=== PATIENT | female | born 1985 | race Hispanic/Latino ===

== ENCOUNTER 2019-09-04 11:37 | Emergency (ER) | payer OTHER | END 2019-09-04 12:15 | disposition home or self-care (01) | LOC: EDH 11:37 | DX: B37.3 Candidiasis of vulva and vagina (principal); E11.9 Type 2 diabetes mellitus without complications; G43.909 Migraine, unspecified, not intractable, without status migrainosus; Z72.0 Tobacco use | CPT/HCPCS: 99281 ==

== ENCOUNTER 2024-09-02 12:11 | Emergency (ER) | payer SELFPAY ==
[~2024-09-02] VITALS: Ht 157.5 cm; Wt 56.7 kg
[2024-09-02 13:21] LABS: BASOPHILS # (AUTO) 0.02 K/uL (0.00-0.20); BASOPHILS % (AUTO) 0.2 % (0.0-5.0); IMMATURE GRANULOCYTE ABSOLUTE 0.03 K/uL (0-1); LYMPHOCYTES # (AUTO) 0.6 K/uL (1.0-4.8); LYMPHOCYTES % (AUTO) 7.5 % (21.0-51.0); MEAN CORPUSCULAR HEMOGLOBIN 30.4 pg (27.0-33.0); MEAN CORPUSCULAR HGB CONC 34.9 g/dL (32.0-36.0); MEAN CORPUSCULAR VOLUME 87.2 fL (79-99); MONOCYTES # (AUTO) 0.4 K/uL (0.1-1.0); MONOCYTES % (AUTO) 4.3 % (3.0-13.0); NEUTROPHILS # (AUTO) 7.1 K/uL (1.8-7.7); NEUTROPHILS % (AUTO) 87.6 % (40.0-77.0); PLATELET COUNT (AUTO) 211 K/uL (130-400); RED BLOOD CELL COUNT(AUTO) 5.39 MIL/uL (4.00-5.50); RED CELL DISTRIBUTION WIDTH 12.4 % (11.0-15.5); WHITE BLOOD COUNT (AUTO) 8.1 K/uL (4.8-10.8)
[2024-09-02] MEDS: ondanSETRON 4MG INJ IVP STA (13:21)
[2024-09-02] MEDS: LACTATED RINGERS 1000ML 1,000 ML IV STA (13:21)
[2024-09-02] MEDS: FAMOTIDINE 20MG VIAL IV STA (13:21)
[2024-09-02] MEDS: morPHINE 2 MG SYG IVP STA (13:21)
[2024-09-02 13:33] LABS: ALBUMIN 3.2 g/dL (3.5-5.0); BILIRUBIN,TOTAL 0.3 mg/dL (0.2-1.0); CREATININE 0.7 mg/dL (0.5-1.0); TOTAL PROTEIN, SERUM 7.4 g/dL (6.0-8.3)
[2024-09-02 13:59] LABS: APPEARANCE,URINE CLOUDY (CLEAR); BILIRUBIN,URINE NEGATIVE (NEGATIVE); COLOR,URINE YELLOW (YELLOW); GLUCOSE, URINE (UA) >=1000 mg/dL (NEGATIVE); KETONES,URINE 150 mg/dL (NEGATIVE); LEUKOCYTE ESTERASE ,URINE NEGATIVE Leu/uL (NEGATIVE); NITRATE,URINE 2+ (NEGATIVE); OCCULT BLOOD,URINE SMALL (NEGATIVE); PROTEIN,URINE 50 mg/dL (NEGATIVE); UROBILINOGEN,URINE 3 mg/dL (0.2-1.0)
[2024-09-02 14:00] LABS: ADD UA MICROSCOPIC YES
[2024-09-02] MEDS: PoTASSium BIcarbonate/CIT AC 25 MEQ TABLET.EFF PO STA (14:00)
[2024-09-02 14:14] LABS: BACTERIA,URINE MOD /HPF (None Seen); MUCUS,URINE RARE LPF (None Seen); SQUAMOUS EPITHELIAL CELL,UR MOD /HPF (0-2)
[2024-09-02] MEDS: ketOROlac 15MG/ML VIAL (15MG/ML) IV STA (14:30)
[2024-09-02] MEDS: cefTRIAXone 1G VIAL IVPB STA (14:47)
[2024-09-02] MEDS ORDERED: FAMO-136 PO (14:59)
[2024-09-02] MEDS ORDERED: ONDA-243 PO (14:59)
[2024-09-02] MEDS ORDERED: CEPH500B PO (14:59)
--- NOTE | 2024-09-02 15:00 | ERN ---
ED Note History of Present Illness Stated Complaint: NVD Chief Complaint: Nausea,Vomiting,Diarrhea Time Seen by MD: 12:22 Time Seen by Midlevel: 12:28 Dictation: 39-YEAR-OLD FEMALE WITH A HISTORY OF HYPERTENSION DIABETES COMING IN COMPLAINING OF VOMITING A RIGHT UPPER QUADRANT PAIN SINCE MONDAY. PATIENT STATES TODAY SHE HAS THROWN UP ABOUT 3 TIMES, NO BLOOD. PATIENT HAS A SURGICAL HISTORY OF C- SECTION, UTERUS RECONSTRUCTION, TONSILLECTOMY, AND CHOLECYSTECTOMY. Allergies: Coded Allergies: No Known Drug Allergies (Unverified Allergy, Unknown, 09/02/24) Home Meds Active Scripts Cephalexin Monohydrate (Keflex) 500 Mg Cap, 500 MG PO BID for 7 Days, #28 CAP Prov:RODRIGUEZVENESSAGURWINDER M[employer]ED [employer] FARM WORKER 09/02/24 Famotidine (Pepcid) 20 Mg Tablet, 1 TAB PO BID for 30 Days, #60 TAB 0 Refills Prov:RODRIGUEZVENESSAGURWINDER MIXED [employer] FARM WORKER 09/02/24 Ondansetron (Ondansetron Odt) 4 Mg Tab.rapdis, 4 MG PO Q6HPRN PRN for nausea for 3 Days, #12 TAB 0 Refills Prov:RODRIGUEZGURWINDER MIXED [employer] FARM WORKER 09/02/24 Past Medical History Past Medical History: Anxiety, Diabetes-Type II, Hypertension Surgical History: Hysterectomy, Tonsillectomy, Cholecystectomy : 2 Para: 1 Aborts: 1 Review of System Dictation CONSTITUTIONAL: NEGATIVE FOR FEVER,CHILLS, AND WEIGHT LOSS EYES: NEGATIVE FOR INJURY, PAIN,REDNESS, AND DISCHARGE ENT: NEGATIVE FOR INJURY,PAIN OR SWELLING CARDIOVASCULAR: NEGATIVE FOR CHEST PAIN, PALPITATIONS, AND EDEMA RESPIRATORY: NEGATIVE FOR SHORTNESS OF BREATH, COUGH, AND WHEEZING, ABDOMEN/GI: COMPLAINING OF EPIGASTRIC PAIN, RIGHT UPPER QUADRANT PAIN, NAUSEA, VOMITING, NO DIARRHEA, AND CONSTIPATION BACK: NEGATIVE FOR INJURY AND PAIN : NEGATIVE FOR INJURY, BLEEDING AND DISCHARGE MS/EXTREMITY: NEGATIVE FOR INJURY AND DEFORMITY SKIN: NEGATIVE FOR RASH, AND DISCOLORATION NEURO: NEGATIVE FOR HEADACHE, WEAKNESS, NUMBNESS, TINGLING, AND SEIZURE PSYCH: NEGATIVE FOR SUICIDE IDEATION, HOMICIDAL IDEATION, AND HALLUCINATIONS Review of Systems: was completed Initial Vital Sign VS Vital Signs Date Time Temp Pulse Resp B/P (MAP) Pulse Ox O2 Delivery O2 Flow Rate FiO2 09/02/24 12:12 Room Air 0 09/02/24 12:20 98.8 90 16 128/68 98 21 Physical Exam Dictation GENERAL: AWAKE, ALERT, NAD HEAD/FACE: NORMOCEPHALIC, ATRAUMATIC EYES: PERRL, EOMI, VISION AT BASELINE ENT: ORAL CAVITY CLEAR, TMS CLEAR, NO SIGNS OF INFECTION NECK: TRACHEA MIDLINE, SUPPLE, NO NUCHAL RIGIDITY CARDIOVASCULAR: RRR, NORMAL S1/S2, NO MRGS, NO JVD RESPIRATORY: CTAB, NO RESPIRATORY DISTRESS, NO RALES OR WHEEZES ABDOMEN: SOFT, NON-TENDER, NON-DISTENDED, NORMAL BOWEL SOUNDS, NO GUARDING OR REBOUND. SKIN: WARM, DRY, NORMAL TURGOR, NO RASH MS/EXTREMITY: PULSES EQUAL, NO CYANOSIS, NEUROVASCULAR INTACT, FROM NEURO: COAX4, GCS 15, STRENGTH 5/5, CN 2-12 INTACT, NORMAL CEREBELLAR EXAM, NORM AL GAIT, PSYCH: NORMAL BEHAVIOR, MOOD, AND AFFECT NORMAL Results (Laboratory/Radiology) Laboratory/Radiology Laboratory Tests Test 09/02/24 12:45 White Blood Count 8.1 K/uL (4.8-10.8) Red Blood Count 5.39 MIL/uL (4.00-5.50) Hemoglobin 16.4 g/dL (12.0-16.0) H Hematocrit 47.0 % (36-48) Mean Corpuscular Volume 87.2 fL (79-99) Mean Corpuscular Hemoglobin 30.4 pg (27.0-33.0) Mean Corpuscular Hemoglobin Concent 34.9 g/dL (32.0-36.0) Red Cell Distribution Width 12.4 % (11.0-15.5) Platelet Count 211 K/uL (130-400) Mean Platelet Volume 11.7 fL (7.5-10.5) H Immature Granulocyte % (Auto) 0.4 % (0-1) Neutrophils (%) (Auto) 87.6 % (40.0-77.0) H Lymphocytes (%) (Auto) 7.5 % (21.0-51.0) L Monocytes (%) (Auto) 4.3 % (3.0-13.0) Eosinophils (%) (Auto) 0.0 % (0.0-8.0) Basophils (%) (Auto) 0.2 % (0.0-5.0) Neutrophils # (Auto) 7.1 K/uL (1.8-7.7) Lymphocytes # (Auto) 0.6 K/uL (1.0-4.8) L Monocytes # (Auto) 0.4 K/uL (0.1-1.0) Eosinophils # (Auto) 0.00 K/uL (0.00-0.70) Basophils # (Auto) 0.02 K/uL (0.00-0.20) Absolute Immature Granulocyte (auto 0.03 K/uL (0-1) Nucleated Red Blood Cells 0.0 % (0.0-0.19) White Cell Morphology Comment See comments Urine Color YELLOW (YELLOW) Urine Appearance CLOUDY (CLEAR) H Urine pH 6.0 (5.0-8.0) Urine Specific [place] 1.026 (1.001-1.031) Urine Protein 50 mg/dL (NEGATIVE) H Urine Glucose (UA) >=1000 mg/dL (NEGATIVE) H Urine Ketones 150 mg/dL (NEGATIVE) H Urine Occult Blood SMALL (NEGATIVE) H Urine Nitrate 2+ (NEGATIVE) H Urine Bilirubin NEGATIVE mg/dL (NEGATIVE) Urine Urobilinogen 3 mg/dL (0.2-1.0) H Urine Leukocyte Esterase NEGATIVE Lana/uL Urine RBC 6-10 /HPF (0-1) H Urine WBC 6-10 /HPF (0-1) H Urine Squamous Epithelial Cells MOD /HPF (0-2) Urine Bacteria MOD /HPF (None Seen) Sodium Level 137 mmol/L (136-145) Potassium Level 3.0 mmol/L (3.5-5.1) *L Chloride Level 98 mmol/L (101-111) L Carbon Dioxide Level 29 mmol/L (21-32) Blood Urea Nitrogen 5 mg/dL (7-18) L Creatinine 0.7 mg/dL (0.5-1.0) Glomerular Filtration Rate Calc 112 mL/min (>90) Random Glucose 249 mg/dL (70-105) H Total Calcium 8.9 mg/dL (8.5-10.1) Total Bilirubin 0.3 mg/dL (0.2-1.0) Aspartate Amino Transf (AST/SGOT) 27 U/L (10-37) Alanine Aminotransferase (ALT/SGPT) 47 U/L (12-78) Alkaline Phosphatase 104 U/L (50-136) Total Protein 7.4 g/dL (6.0-8.3) Albumin 3.2 g/dL (3.5-5.0) L Lipase 32 U/L (16-77) Human Chorionic Gonadotropin, Quant 0 mIU/mL (0-5) Labs Reviewed?: Yes CT Scan Comment: IMAGING REPORT Signed PATIENT: DAVIDE JACOB MR#: [id number] : 1985 SEX: F AGE: 39 LOCATION: [facility] ORDER 13 STATUS: REG ER REPORT#: [id number] SERVICE 11 REASON: ABDOMINAL PAIN , RUQ,R FLANK ORDERING PHYSICIAN: GURWINDER RODRIGUEZ NP PROCEDURE: ABD PEL W - CT ABDOMEN/PELVIS W/CONTRAST CT ABDOMEN/PELVIS W/CONTRAST HISTORY: Abdominal pain COMPARISON: None TECHNIQUE: Multiple sequential axial images of the abdomen and pelvis were obtained from the dome of the diaphragm through symphysis pubis. Patient was given 75 cc of Omnipaque through intravenous route. Oral contrast was not given. FINDINGS: No pleural effusion is seen bilaterally. There is no evidence of parenchymal disease or pulmonary nodule of the visualized lower lungs. Degenerative changes of the thoracolumbar spine are present. The heart is not enlarged. Liver is enlarged measuring 21 cm. Gallbladder is contracted. There is fluid-filled colon may be related to enterocolitis. The liver, spleen, adrenal glands and pancreas are unremarkable. There is no evidence of hydronephrosis bilaterally. No evidence of renal stone is seen. Fecal material is seen in the colon. There are normal size retroperitoneal and mesenteric lymph nodes. No ascites is seen. No CT evidence of acute appendicitis is seen. Clinical correlation is recommended. Pelvic sidewalls are symmetric bilaterally. Bladder is well distended without wall thickening. IMPRESSION: 1. Fluid-filled small bowel loops and colon may be related to enterocolitis. CT was performed with one or more following dose reduction techniques: automated exposure control, adjustment of the mA and kv according to patient's size, or use of a iterative reconstruction technique. DICTATED BY: LORNA SHORE MD DATE: 09/02/24 161 ELECTRONICALLY SIGNED BY: LORNA SHORE MD DATE: 09/02/24 1617 ED Course ED Course Orders Procedure Category Date Status Time Cbc With Differential LAB 09/02/24 Complete 12:57 Comprehensive LAB 09/02/24 Complete Metabolic Panel 12:57 Urinalysis Profile LAB 09/02/24 Complete 12:57 Hcg,Quantitative LAB 09/02/24 Complete 12:57 Ondansetron 4mg Inj PHA 09/02/24 Complete (Zofran 4mg Inj) 12:57 Famotidine 20mg Vial PHA 09/02/24 Complete (Pepcid 20mg Vial) 12:57 Morphine 2mg Syg PHA 09/02/24 Complete (Morphine 2mg Syg) 12:57 Lactated Ringers PHA 09/02/24 Complete 1000ml (Lactated 12:57 Potassium Bicarb/Cit PHA 09/02/24 Complete Ac 25meq (K-Lyte Ta 13:37 Culture Urine REYNA 09/02/24 In Process 14:00 Lipase LAB 09/02/24 Complete 14:01 Ketorolac PHA 09/02/24 Complete Tromethamine 15mg/Ml 14:22 Ceftriaxone 1g Vial PHA 09/02/24 Complete (Rocephine 1g Inj) 14:24 Ct Abdomen/Pelvis CT 09/02/24 Resulted W/Contrast 15:12 Iohexol (Omnipaque) PHA 09/02/24 Complete 15:51 Current Medications Medications (Trade) Dose Ordered Sig/Ella Route PRN Reason Start Time Stop Time Status Last Admin Dose Admin Ceftriaxone Sodium (ROCEphine 1G INJ) 1 gm ONCE STAT IVPB 09/02/24 14:24 09/02/24 14:26 DC 09/02/24 14:47 Famotidine (Pepcid 20mg Vial) 20 mg ONCE STAT IV 09/02/24 12:57 09/02/24 13:00 DC 09/02/24 13:21 Iohexol (Omnipaque) 75 ml STK-MED ONCE IV 09/02/24 15:51 09/02/24 15:51 DC Ketorolac Tromethamine (toRADol) 15 mg ONCE STAT IV 09/02/24 14:22 09/02/24 14:23 DC 09/02/24 14:30 Lactated Ringer's 1,000 ml @ 1,000 mls/hr Q1H STAT IV 09/02/24 12:57 09/02/24 13:56 DC 09/02/24 13:21 Morphine Sulfate (morPHINE 2MG SYG) 2 mg ONCE STAT IVP 09/02/24 12:57 09/02/24 13:00 DC 09/02/24 13:21 Ondansetron HCl (zoFRAN 4MG INJ) 4 mg ONCE STAT IVP 09/02/24 12:57 09/02/24 13:00 DC 09/02/24 13:21 Potassium Bicarbonate (K-Lyte Tablet Eff 25 Meq Tablet.eff) 50 meq ONCE STAT PO 09/02/24 13:37 09/02/24 13:39 DC 09/02/24 14:00 Vital Signs Date Time Temp Pulse Resp B/P (MAP) Pulse Ox O2 Delivery O2 Flow Rate FiO2 09/02/24 17:13 98.8 89 16 130/70 98 Room Air* 0 21 09/02/24 14:20 80 16 126/68 100 Room Air* 0 21 09/02/24 13:20 78 16 132/70 100 Room Air* 0 21 09/02/24 12:20 98.8 90 16 128/68 98 Room Air* 0 21 09/02/24 12:12 Room Air 0 Medical Decision Making MDM MDM: 39-YEAR-OLD FEMALE WITH A HISTORY OF HYPERTENSION DIABETES COMING IN COMPLAINING OF VOMITING A RIGHT UPPER QUADRANT PAIN SINCE MONDAY. PATIENT STATES TODAY SHE HAS THROWN UP ABOUT 3 TIMES, NO BLOOD. PATIENT HAS A SURGICAL HISTORY OF , UTERUS RECONSTRUCTION, TONSILLECTOMY, AND CHOLECYSTECTOMY.CBC SHOWS NO LEUKOCYTOSIS, NO ANEMIA, NO THROMBOCYTOPENIA. CH EMISTRY SHOWS HYPONATREMIA, REPLACED IN THE ER. NORMAL KIDNEY FUNCTION. HYPERGLYCEMIA AT 2:49 A.M.. NO TRANSAMINITIS. T BILI WITHIN NORMAL RANGE, LIPASE WITHIN NORMAL RANGE. UA SHOWS EVIDENCE OF MILD URINARY TRACT INFECTION, ROCEPHIN GIVEN IN THE ER. After pain medication patient currently states she still has pain, CT scan of the abdomen ordered. CT scan shows fluid filled small bowel loops and colon related to enterocolitis. PATIENT STATES FEELS BETTER AFTER PAIN MEDICATION AND FLUIDS. DISCUSSED FINDINGS WITH THE PATIENT. EDUCATED TO AVOID ANY SUGARY, FRIED OR SPICY FOODS. EDUCATED TO FOLLOW UP WITH PCP IN 1-2 DAYS OR TO RETURN TO THE ER IF SYMPTOMS WORSEN. PATIENT VERBALIZED UNDERSTANDING, ANSWERED ALL QUESTIONS. DIFFERENTIAL DIAGNOSIS: GASTROENTERITIS, URINARY TRACT INFECTION, PANCREATITIS, GASTRITIS RATIONALE: TESTS CONSIDERED AND ORDERED SECONDARY TO SHARED DECISION MAKING INCLUDE: PREVIOUS OUTSIDE RECORDS REVIEWED: OLD ER VISITS. RISK OF COMPLICATION AND/OR MORBIDITY OR MORTALITY OF PATIENT MANAGEMENT: NONE MEDICATIONS-PER MEDICATION RECONCILIATION NEED FOR HOSPITALIZATION: PATIENT DOES NOT MEET CRITERIA FOR HOSPITALIZATION. NEED FOR EMERGENCY MAJOR/MINOR SURGERY: NO THERE ARE NO SOCIAL CONCERNS WITH THIS PATIENT. PRESCRIPTION DRUG MANAGEMENT PRESCRIPTIONS WILL INCLUDE SYMPTOMATIC CARE PATIENT'S PRIOR EXTERNAL MEDICAL RECORDS FROM OTHER ER VISITS WERE REVIEWED BY ME INDICATED. PRIOR TESTING AND RESULTS FROM PREVIOUS VISITS WERE REVIEWED. PRIOR TESTS WERE TAKEN INTO ACCOUNT WITH MEDICAL DECISION MAKING AND RESOURCE UTILIZATION, INDEPENDENT HISTORIAN/HISTORIANS WERE USED TO OBTAIN COMPLETE MEDICAL HISTORY. I INDEPENDENTLY INTERPRETED THE TEST THAT WERE PERFORMED, RESULTS WERE REVIEWED BY ME AND CONSIDERED FINDINGS ON RADIOLOGY IF ORDERED. MEDICAL MANAGEMENT AND EXAMINATION INTERPRETATION DISCUSSIONS WERE HAD BY ME WITH OTHER QUALIFIED HEALTHCARE PROFESSIONALS INDICATED FOR THE PATIENT'S CARE. DX & DISP Disposition: Discharge Departure Impression: Primary Impression: Urinary tract infection Additional Impression: Gastroenteritis Condition: Stable Scripts Cephalexin Monohydrate (Keflex) 500 Mg Cap 500 MG PO BID for 7 Days, #28 CAP Prov: GURWINDER RODRIGUEZ [employer] WORKER 09/02/24 Famotidine (Pepcid) 20 Mg Tablet 1 TAB PO BID for 30 Days, #60 TAB 0 Refills Prov: GURWINDER RODRIGUEZ [employer] WORKER 09/02/24 Ondansetron (Ondansetron Odt) 4 Mg Tab.rapdis 4 MG PO Q6HPRN PRN for nausea for 3 Days, #12 TAB 0 Refills Prov: GURWINDER RODRIGUEZ [employer] WORKER 09/02/24 Additional Instructions: PLEASE TAKE MEDICATION PRESCRIBED. PLEASE TAKE YOUR DIABETIC MEDICATION PRESCRIBED. START A BLAND DIET AND INCREASE TOLERATED. AVOID ANY SUGARY, SPICY, FRIED FOODS. RETURN TO THE ER IF YOUR UNABLE TO KEEP ANY FOOD OR FLUIDS DOWN DESPITE TAKING YOUR NAUSEA MEDICATION. Referrals: SELF,REFERRAL (PCP) Time of Disposition: 14:59 I have reviewed the case, and I agree with, Diagnosis and Plan I performed this substantive portion of this visit. I have reviewed and personally made and approve the management plan that is documented in the note by myself or the RIGO. I acknowledge full responsibility for the patient's management plan. GURWINDER RODRIGUEZ NP Sep 02, 2024 15:00 LUMA WEBSTER MD Sep 02, 2024 18:47
[2024-09-02] MEDS ORDERED: IOHEXOL-350 75 ML VIAL IV ONE (15:51)
--- NOTE | 2024-09-02 16:17 | HMCIMG ---
CT ABDOMEN/PELVIS W/CONTRAST HISTORY: Abdominal pain COMPARISON: None TECHNIQUE: Multiple sequential axial images of the abdomen and pelvis were obtained from the dome of the diaphragm through symphysis pubis. Patient was given 75 cc of Omnipaque through intravenous route. Oral contrast was not given. FINDINGS: No pleural effusion is seen bilaterally. There is no evidence of parenchymal disease or pulmonary nodule of the visualized lower lungs. Degenerative changes of the thoracolumbar spine are present. The heart is not enlarged. Liver is enlarged measuring 21 cm. Gallbladder is contracted. There is fluid-filled colon may be related to enterocolitis. The liver, spleen, adrenal glands and pancreas are unremarkable. There is no evidence of hydronephrosis bilaterally. No evidence of renal stone is seen. Fecal material is seen in the colon. There are normal size retroperitoneal and mesenteric lymph nodes. No ascites is seen. No CT evidence of acute appendicitis is seen. Clinical correlation is recommended. Pelvic sidewalls are symmetric bilaterally. Bladder is well distended without wall thickening. IMPRESSION: 1. Fluid-filled small bowel loops and colon may be related to enterocolitis. CT was performed with one or more following dose reduction techniques: automated exposure control, adjustment of the mA and kv according to patient's size, or use of a iterative reconstruction technique.
[2024-09-02 17:13] VITALS: BP 130/70; PULSE 89; RESP 16; TEMP 98.7; O2SAT 98
== END 2024-09-02 17:30 | disposition home or self-care (01) ==
LOC: EDH 12:11
DX: N39.0 Urinary tract infection, site not specified (principal); K52.9 Noninfective gastroenteritis and colitis, unspecified; E11.9 Type 2 diabetes mellitus without complications; I10 Essential (primary) hypertension; R10.2 Pelvic and perineal pain; Z90.49 Acquired absence of other specified parts of digestive tract; Z90.710 Acquired absence of both cervix and uterus
CPT/HCPCS: 99285; 74177; 96374; 96375; 96361; 80053; 84702; 83690; 85025; 87086 ×2; 87186; 81001; 36415; J1885; J7120; J3490; J2270; J0696; J2405; Q9967

== ENCOUNTER 2024-12-07 10:05 | Emergency (ER) | payer SELFPAY ==
[~2024-12-07] VITALS: Ht 157.5 cm; Wt 74.8 kg
[~2024-12-07 10:05] MED LIST: CEPH500B PO; FAMO-136 PO; ONDA-243 PO
--- NOTE | 2024-12-07 12:45 | NUR ---
MOVED PT TO [facility] AT THIS TIME. ASSUMED CARE
[2024-12-07 13:05] LABS: ADD UA MICROSCOPIC YES; APPEARANCE,URINE CLEAR (CLEAR); BILIRUBIN,URINE NEGATIVE (NEGATIVE); COLOR,URINE LIGHT-YELLOW (YELLOW); GLUCOSE, URINE (UA) >=1000 mg/dL (NEGATIVE); KETONES,URINE NEGATIVE (NEGATIVE); LEUKOCYTE ESTERASE ,URINE NEGATIVE Leu/uL (NEGATIVE); MUCUS,URINE RARE LPF (None Seen); NITRATE,URINE NEGATIVE (NEGATIVE); OCCULT BLOOD,URINE NEGATIVE (NEGATIVE); PH,URINE 5.5 (5.0-8.0); PROTEIN,URINE NEGATIVE (NEGATIVE); SQUAMOUS EPITHELIAL CELL,UR FEW /HPF (0-2); UROBILINOGEN,URINE 0.2 mg/dL (0.2-1.0); WBC,URINE 0-1 /HPF (0-1)
[2024-12-07] MEDS: fluCONazole 100 MG TAB PO ONE (13:13)
[2024-12-07] MEDS: morPHINE 2 MG SYG IM ONE (13:17)
[2024-12-07] MEDS ORDERED: KETO10TA2 PO (13:29)
--- NOTE | 2024-12-07 13:30 | ERN ---
General Chief Complaint: Lower Extremity Pain/Injury Stated Complaint: LEG PAIN Time Seen by MD: 10:06 Time Seen by Midlevel: 10:06 Source: patient History of Present Illness Initial Comments The patient was a 39-year-old female with a past medical history of type 2 diabetes, anxiety, and hypertension presenting to the emergency department for evaluation of bilateral upper and lower extremity pain that feels like pins and needles. Patient does report suffering from neuropathy and is taking gabapentin with little to no relief. She called her primary care doctor today and was advised to report to the ER if the pain increased. She currently denies any symptoms. She states last time she was admitted they administered morphine and that is what usually helped her neuropathic pain. Additionally, she reports having increased vaginal discharge. She states her symptoms are similar to the previous time she was diagnosed with a yeast infection. Denies any dysuria or hematuria. Allergies: Coded Allergies: No Known Drug Allergies (Unverified Allergy, Unknown, 09/02/24) Home Meds Active Scripts Ketorolac Tromethamine (Ketorolac Tromethamine) 10 Mg Tablet, 1 TAB PO TID for pain for 5 Days, #15 TAB 0 Refills Prov:FRANKLIN REYES 12/07/24 Cephalexin Monohydrate (Keflex) 500 Mg Cap, 500 MG PO BID for 7 Days, #28 CAP Prov:GURWINDER RODRIGUEZ SOFTWARE QA MANAGER 09/02/24 Famotidine (Pepcid) 20 Mg Tablet, 1 TAB PO BID for 30 Days, #60 TAB 0 Refills Prov:VENESSA RODRIGUEZCE SOFTWARE QA MANAGER 09/02/24 Ondansetron (Ondansetron Odt) 4 Mg Tab.rapdis, 4 MG PO Q6HPRN PRN for nausea for 3 Days, #12 TAB 0 Refills Prov:GURWINDER RODRIGUEZ SOFTWARE QA MANAGER 09/02/24 Past Medical History Past Medical History: Anxiety, Diabetes-Type II, Hypertension Past Surgical History: Hysterectomy, Tonsillectomy, Cholecystectomy Female( History) : 2 Para: 1 Aborts: 1 ROS Dictation CONSTITUTIONAL: Negative except for HPI HEAD/FACE: Negative except for HPI EENT: Negative except for HPI RESPIRATORY: Negative except for HPI GASTROINTESTINAL/ABDOMINAL: Negative except for HPI GENITOURINARY: Negative except for HPI MUSCULOSKELETAL: Negative except for HPI INTEGUMENTARY: Negative except for HPI NEUROLOGICAL/PSYCH: Negative except for HPI HEMATOLOGIC/LYMPHATIC: Negative except for HPI All Systems Negative, Except as noted above. 13 point review of systems assessed and all negative except for above. Physical Exam Physical Exam Dictation Vital Signs reviewed General Appearance: Alert, oriented x 3, no acute distress, well developed, nourished. Head and Face: non-traumatic. Eyes: PERRL, pink conjunctivas, eyelid no trauma, anterior chamber with arcus senilis. Ears: Pinnas intact and no signs of trauma or erythema ear canals clear and no discharge TM no erythema Nose: No discharge, no bleeding. Oropharynx: Mouth normal, tongue pink, pharynx clear,no erythema, tonsils no exudates, no abscesses noted, mucous membrane moist Neck: Supple, non-tender, no thyromegaly, no masses, no JVD, no bruits Breast:Deferred Chest:No tenderness, no crepitus, no paradoxical movement, no retractions Lungs:Clear, well-ventilated, symmetric, no rales, no wheezing, no rhonchi, no stridor, good breath sounds bilaterally Heart: Regular rate, regular rhythm, no murmur, no gallops Vascular: no peripheral edema, Abdomen: Soft, positive bowel sounds, nondistended, no guarding, nontender, no rebound, no masses no hepatomegaly, no splenomegaly, no Velazquez's sign, no hernias. Rectal: Deferred Genital: Deferred Neurological: Normal speech, motor function intact, sensory function intact Musculoskeletal: Neck nontender, full range of motion, back nontender, full range of motion, Extremities: nontender, full range of motion Skin: Color pink, dry, no turgor, no rash, no lacerations, no abrasions, no contusions. Lymphatic: Deferred Results Laboratory and Microbiology Lab and Micro Result Laboratory Tests Test 12/07/24 11:52 Urine Color LIGHT-YELLOW (YELLOW) Urine Appearance CLEAR (CLEAR) Urine pH 5.5 (5.0-8.0) Urine Specific [place] 1.016 (1.001-1.031) Urine Protein NEGATIVE mg/dL (NEGATIVE) Urine Glucose (UA) >=1000 mg/dL (NEGATIVE) H Urine Ketones NEGATIVE mg/dL (NEGATIVE) Urine Occult Blood NEGATIVE (NEGATIVE) Urine Nitrate NEGATIVE (NEGATIVE) Urine Bilirubin NEGATIVE mg/dL (NEGATIVE) Urine Urobilinogen 0.2 mg/dL (0.2-1.0) Urine Leukocyte Esterase NEGATIVE Lana/uL Urine RBC None /HPF (0-1) Urine WBC 0-1 /HPF (0-1) Urine Squamous Epithelial Cells FEW /HPF (0-2) Urine Bacteria None /HPF (None Seen) Labs Reviewed?: Yes MDM MDM: The patient was a 39-year-old female with a past medical history of type 2 diabetes, anxiety, and hypertension presenting to the emergency department for evaluation of bilateral upper and lower extremity pain that feels like pins and needles. Patient does report suffering from neuropathy and is taking gabapentin with little to no relief. She called her primary care doctor today and was ad vised to report to the ER if the pain increased. She currently denies any symptoms. She states last time she was admitted they administered morphine and that is what usually helped her neuropathic pain. Additionally, she reports having increased vaginal discharge. She states her symptoms are similar to the previous time she was diagnosed with a yeast infection. Denies any dysuria or hematuria. On physical examination the patient was in no acute distress. Initial vital signs are stable. Patient was afebrile and nontoxic appearing. Lower extremity examination is unremarkable. There was no edema noted or signs of external tra kourtney. Symptoms appear to be consistent with neuropathic pain. Patient was no focal weakness. The remainder of her physical examination is unremarkable. The patient was given 2 mg of morphine IM. She was treated with a one time dose of fluconazole given her symptoms of a yeast infection. A urinalysis was obtained to rule out urinary tract infection however urinalysis does not reveal infection. Patient will be discharged home with a prescription for Toradol she will need to follow up with your primary care doctor in 2-3 days for repeat evaluation. Differential diagnosis: Neuropathic pain, bacterial vaginosis, urinary tract infection There are no social concerns with this patient. Prescription drug management Prescriptions will include: Toradol Medical management and examination interpretation discussions were had by me with other qualified healthcare professionals as indicated for the patient's care. ED Course Orders Procedure Category Date Status Time Urinalysis Profile LAB 12/07/24 Complete 10:31 Fluconazole 100 Mg PHA 12/07/24 Complete Tab (Diflucan 100 Mg 11:00 Morphine 2mg Syg PHA 12/07/24 Complete (Morphine 2mg Syg) 11:00 Current Medications Medications (Trade) Dose Ordered Sig/Ella Route PRN Reason Start Time Stop Time Status Last Admin Dose Admin Fluconazole (DiFLUCan 100 mg TAB) 150 mg ONCE ONCE PO 12/07/24 11:00 12/07/24 11:01 DC 12/07/24 13:13 Morphine Sulfate (morPHINE 2MG SYG) 2 mg ONCE ONCE IM 12/07/24 11:00 12/07/24 11:01 DC 12/07/24 13:17 Vital Signs Date Time Temp Pulse Resp B/P (MAP) Pulse Ox O2 Delivery O2 Flow Rate FiO2 12/07/24 13:32 97.9 74 20 128/63 98 Room Air* 0 21 12/07/24 10:06 97.9 86 20 153/81 99 Room Air DX & DISP Disposition: Discharge Departure Impression: Primary Impression: Neuropathic pain of both legs Additional Impression: Vaginal discharge Condition: Stable Scripts Ketorolac Tromethamine (Ketorolac Tromethamine) 10 Mg Tablet 1 TAB PO TID for pain for 5 Days, #15 TAB 0 Refills Prov: FRANKLIN REYES 12/07/24 Additional Instructions: Your urinalysis does not show any evidence of infection. You were treated with a one time dose of fluconazole for a suspected yeast infection. Your lower leg pain this consistent with neuropathic pain. I have given you a prescription for ketorolac for outpatient management. However, you need to follow up with your primary care doctor for further evaluation. Referrals: NATHALIA RICARDO (PCP) Time of Disposition: 13:27 I have reviewed the case, and I agree with, Diagnosis and Plan I performed the substantive portion of the visit. I have reviewed and personally made and approve the management plan that is documented in the note by myself or the RIGO. I acknowledge for responsibility for the patient's management plan. FRANKLIN REYES Dec 07, 2024 13:30 REMIGIO SCOTT DO Dec 07, 2024 18:09
[2024-12-07 13:32] VITALS: BP 128/63; PULSE 74; RESP 20; TEMP 97.8; O2SAT 98
== END 2024-12-07 13:43 | disposition home or self-care (01) ==
LOC: EDH 10:05
DX: M79.2 Neuralgia and neuritis, unspecified (principal); N89.8 Other specified noninflammatory disorders of vagina; E11.40 Type 2 diabetes mellitus with diabetic neuropathy, unspecified; I10 Essential (primary) hypertension; Z90.49 Acquired absence of other specified parts of digestive tract; Z90.710 Acquired absence of both cervix and uterus
CPT/HCPCS: 99283; 81001; 96372; J2270

== ENCOUNTER 2024-12-24 13:28 | Emergency (ER) | payer SELFPAY ==
[~2024-12-24] VITALS: Ht 157.5 cm; Wt 74.8 kg
[~2024-12-24 13:28] MED LIST changes: +KETO10TA2 PO
--- NOTE | 2024-12-24 13:36 | ERN ---
General Chief Complaint: FOOT INJURY/PAIN Stated Complaint: FEET PAIN Time Seen by MD: 13:29 Source: patient History of Present Illness Initial Comments Patient is a 39-year-old female coming in to be evaluated for lower extremity discomfort. She states that she has been having this discomfort for a while. States that the discomfort is found in bilateral lower extremity on the sole of her feet and states he feels like burning and numbness at the same time. Allergies: Coded Allergies: No Known Drug Allergies (Unverified Allergy, Unknown, 09/02/24) Home Meds Active Scripts Ketorolac Tromethamine (Ketorolac Tromethamine) 10 Mg Tablet, 1 TAB PO TID for pain for 5 Days, #15 TAB 0 Refills Prov:FRANKLIN REYES 12/07/24 Cephalexin Monohydrate (Keflex) 500 Mg Cap, 500 MG PO BID for 7 Days, #28 CAP Prov:GURWINDER RODRIGUEZ GARDEN [employer]OURER 09/02/24 Famotidine (Pepcid) 20 Mg Tablet, 1 TAB PO BID for 30 Days, #60 TAB 0 Refills Prov:GURWINDER RODRIGUEZ GARD[employer]ER 09/02/24 Ondansetron (Ondansetron Odt) 4 Mg Tab.rapdis, 4 MG PO Q6HPRN PRN for nausea for 3 Days, #12 TAB 0 Refills Prov:GURWINDER RODRIGUEZ [employer]ARD[employer]ER 09/02/24 Past Medical History Past Medical History: Anxiety, Diabetes-Type II, Hypertension Past Surgical History: Hysterectomy, Tonsillectomy, Cholecystectomy Female( History) : 2 Para: 1 Aborts: 1 ROS Dictation CONSTITUTIONAL: No chills, no fever, no weakness, no diaphoresis, no malaise. HEAD/FACE: No signs of trauma. EENT: No eye pain, no blurred vision, no tearing, no double vision, no ear pain, no ear discharge, no nose pain, no nasal congestion, no throat pain, no throat swelling, no mouth pain. RESPIRATORY: No cough, no orthopnea, no SOB, no stridor, no wheezing. CARDIOVASCULAR: No chest pain, no edema, no palpitations, no syncope. GASTROINTESTINAL/ABDOMINAL: No abdominal pain, no constipation, no diarrhea, no nausea, no vomiting. GENITOURINARY: No abnormal discharge, no dysuria, no frequent urination, no hematuria. No complaints of pain in the genitals. MUSCULOSKELETAL: No back pain, no gout, no joint pain, no joint swelling, no muscle pain, no muscle stiffness, no neck pain. INTEGUMENTARY: No change in color, no change in hair/nails, no dryness, no lesion, no lumps, no rash. NEUROLOGICAL/PSYCH: No anxiety, not depressed, no emotional problem, no headache, no numbness, no pre-existing deficit, no history of seizures, no tremors, no weakness. HEMATOLOGIC/LYMPHATIC: Not anemic, no history of blood clots, no apparent bleeding, no bruising, glands not swollen. All Systems Negative, Except as Noted. Physical Exam Physical Exam Dictation VITAL SIGNS: Reviewed. GENERAL APPEARANCE: Alert, oriented x3, no acute distress, obese. HEAD AND FACE: Non-traumatic. EYES: PERRL, pink conjunctivas, eyelid no trauma, anterior chamber clear. EARS: Pinnas intact and no signs of trauma or erythema. Ear canals clear and no discharge. TMs no erythema. NOSE: No discharge, no bleeding. OROPHARYNX: Mouth normal, teeth no caries, tongue pink. Pharynx clear, no erythema. Tonsils no exudates, no abscesses noted. Mucous membrane moist. NECK: Supple, non-tender, no thyromegaly, no masses, no JVD, no bruits. BREAST: Deferred. CHEST: No tenderness, no crepitus, no paradoxical movement, no retractions. LUNGS: Clear, well-ventilated, symmetric, no rales, no wheezing, no rhonchi, no stridor, good breath sounds bilaterally. HEART: Regular rate, regular rhythm, no murmur, no gallops. VASCULAR: No peripheral edema. ABDOMEN: Soft, positive bowel sounds, nondistended, no guarding, nontender, no rebound, no masses no hepatomegaly, no splenomegaly, no Velazquez's sign, no hernias. RECTAL: Deferred. GENITAL: Deferred. NEUROLOGICAL: Normal speech, gross motor function intact, gross sensory function intact. MUSCULOSKELETAL: Neck nontender, full range of motion, back nontender, full range of motion. EXTREMITIES: Nontender, full range of motion. SKIN: Color pink, dry, no turgor, no rash, no lacerations, no abrasions, no contusions. LYMPHATICS: Deferred. Results Laboratory and Microbiology Lab and Micro Result Laboratory Tests Test 12/24/24 13:51 White Blood Count 7.4 K/uL (4.8-10.8) Red Blood Count 4.89 MIL/uL (4.00-5.50) Hemoglobin 14.4 g/dL (12.0-16.0) Hematocrit 43.5 % (36-48) Mean Corpuscular Volume 89.0 fL (79-99) Mean Corpuscular Hemoglobin 29.4 pg (27.0-33.0) Mean Corpuscular Hemoglobin Concent 33.1 g/dL (32.0-36.0) Red Cell Distribution Width 12.3 % (11.0-15.5) Platelet Count 266 K/uL (130-400) Mean Platelet Volume 11.2 fL (7.5-10.5) H Immature Granulocyte % (Auto) 0.3 % (0-1) Neutrophils (%) (Auto) 62.6 % (40.0-77.0) Lymphocytes (%) (Auto) 30.0 % (21.0-51.0) Monocytes (%) (Auto) 4.4 % (3.0-13.0) Eosinophils (%) (Auto) 2.2 % (0.0-8.0) Basophils (%) (Auto) 0.5 % (0.0-5.0) Neutrophils # (Auto) 4.7 K/uL (1.8-7.7) Lymphocytes # (Auto) 2.2 K/uL (1.0-4.8) Monocytes # (Auto) 0.3 K/uL (0.1-1.0) Eosinophils # (Auto) 0.16 K/uL (0.00-0.70) Basophils # (Auto) 0.04 K/uL (0.00-0.20) Absolute Immature Granulocyte (auto 0.02 K/uL (0-1) Nucleated Red Blood Cells 0.0 % (0.0-0.19) Sodium Level 135 mmol/L (136-145) L Potassium Level 3.8 mmol/L (3.5-5.1) Chloride Level 101 mmol/L (101-111) Carbon Dioxide Level 30 mmol/L (21-32) Blood Urea Nitrogen 9 mg/dL (7-18) Creatinine 0.6 mg/dL (0.5-1.0) Glomerular Filtration Rate Calc 116 mL/min (>90) Random Glucose 280 mg/dL (70-105) H Total Calcium 8.9 mg/dL (8.5-10.1) Labs Reviewed?: Yes MDM MDM: Differential diagnosis: Neuropathy, diabetic neuropathy, electrolyte imbalance, Rationale: Tests considered and ordered secondary to shared decision making include: Previous outside records reviewed: Old ER visits. Risk of complication and/or morbidity or mortality of patient management: None Patient is a 39-year-old female coming in to be evaluated for neuropathy of the lower extremity. Laboratory workup did not disclose acute findings. Patient will be discharged with a diagnosis of neuropathy I did advised her appropriate follow up with PCP in 1-2 days. Patient will be discharged with medication for nerve pain. ED Course Orders Procedure Category Date Status Time Gabapentin 100 Mg Cap PHA 12/24/24 Complete (Neurontin 100 Mg 14:00 Cbc With Differential LAB 12/24/24 Complete 13:36 Basic Metabolic Panel LAB 12/24/24 Complete 13:36 Current Medications Medications (Trade) Dose Ordered Sig/Ella Route PRN Reason Start Time Stop Time Status Last Admin Dose Admin Gabapentin (NEURontin 100 mg CAP) 100 mg ONCE ONCE PO 12/24/24 14:00 12/24/24 14:01 DC 12/24/24 14:12 Vital Signs Date Time Temp Pulse Resp B/P (MAP) Pulse Ox O2 Delivery O2 Flow Rate FiO2 12/24/24 14:18 98.1 94 16 146/94 98 Room Air* 0 21 12/24/24 13:29 98.1 98 16 148/88 98 Room Air DX & DISP Disposition: Discharge Departure Impression: Primary Impression: Neuropathic pain of both legs Condition: Stable Scripts Gabapentin (Gabapentin) 100 Mg Capsule 1 CAP PO BID for 3 Days, #6 CAP 0 Refills Prov: GARRET ARRIAZA MD 12/24/24 Additional Instructions: FOLLOW-UP WITH PRIMARY CARE PROVIDER IN 1 TO 2 DAYS. TAKE MEDICATIONS DIRECTED HERE IN THE EMERGENCY ROOM. OKAY TO CONTINUE HOME MEDICATIONS UNLESS OTHERWISE DISCUSSED DURING YOUR VISIT IN THE EMERGENCY ROOM TODAY. RETURN TO YOUR NEAREST EMERGENCY ROOM IF SYMPTOMS WORSEN OR IF THERE IS NO IMPROVEMENT. CALL 911 IF YOU NEED IMMEDIATE ASSISTANCE. TAKE TYLENOL [id number] NEEDED AND IF NO CONTRAINDICATIONS ARE PRESENT. INCREASE ORAL HYDRATION. A WOUND CULTURE OR URINE CULTURE WAS ORDERED HERE IN THE EMERGENCY ROOM DEPARTMENT PLEASE FOLLOW-UP WITH PRIMARY CARE PROVIDER AND ADVISE THEM TO GET REPEAT PORTS FROM OUR FACILITY. IF YOU HAD ANY RON WRAP/SPLINTS THAT WERE APPLIED HERE, PLEASE DO NOT REMOVE THEM UNTIL YOU SEE YOUR PRIMARY CARE OR SPECIALTY. Referrals: Referrals: NATHALIA RICARDO (PCP) Time of Disposition: 14:25 GARRET ARRIAZA MD Dec 24, 2024 13:36
[2024-12-24 13:59] LABS: BASOPHILS # (AUTO) 0.04 K/uL (0.00-0.20); BASOPHILS % (AUTO) 0.5 % (0.0-5.0); EOSINOPHILS # (AUTO) 0.16 K/uL (0.00-0.70); EOSINOPHILS % (AUTO) 2.2 % (0.0-8.0); HEMATOCRIT 43.5 % (36-48); IMMATURE GRANULOCYTE ABSOLUTE 0.02 K/uL (0-1); LYMPHOCYTES # (AUTO) 2.2 K/uL (1.0-4.8); MEAN CORPUSCULAR HEMOGLOBIN 29.4 pg (27.0-33.0); MEAN CORPUSCULAR HGB CONC 33.1 g/dL (32.0-36.0); MONOCYTES # (AUTO) 0.3 K/uL (0.1-1.0); MONOCYTES % (AUTO) 4.4 % (3.0-13.0); NEUTROPHILS # (AUTO) 4.7 K/uL (1.8-7.7); NEUTROPHILS % (AUTO) 62.6 % (40.0-77.0); PLATELET COUNT (AUTO) 266 K/uL (130-400); RED BLOOD CELL COUNT(AUTO) 4.89 MIL/uL (4.00-5.50); RED CELL DISTRIBUTION WIDTH 12.3 % (11.0-15.5); WHITE BLOOD COUNT (AUTO) 7.4 K/uL (4.8-10.8)
[2024-12-24] MEDS: GABApentin 100 MG CAPSULE PO ONE (14:12)
[2024-12-24 14:18] VITALS: BP 146/94; PULSE 94; RESP 16; TEMP 98.1; O2SAT 98
[2024-12-24 14:22] LABS: CREATININE 0.6 mg/dL (0.5-1.0); POTASSIUM 3.8 mmol/L (3.5-5.1)
[2024-12-24] MEDS ORDERED: GABA-529 PO (14:26)
== END 2024-12-24 14:38 | disposition home or self-care (01) ==
LOC: EDH 13:28
DX: M79.2 Neuralgia and neuritis, unspecified (principal); E11.9 Type 2 diabetes mellitus without complications; I10 Essential (primary) hypertension; Z90.49 Acquired absence of other specified parts of digestive tract; Z90.710 Acquired absence of both cervix and uterus; Z79.899 Other long term (current) drug therapy
CPT/HCPCS: 36415; 80048; 85025; 99283

== ENCOUNTER 2025-02-14 21:34 | Emergency (ER) | payer SELFPAY ==
[~2025-02-14] VITALS: Ht 157.5 cm; Wt 74.8 kg
[~2025-02-14 21:34] MED LIST changes: +GABA-529 PO
[2025-02-14 21:46] VITALS: TEMP 97.3
[2025-02-14] MEDS: acetaMINOPHEN 500 MG TABLET PO ONE (22:13)
[2025-02-14] MEDS: 0.9%NACL 1000ML 1,000 ML IV ONE (22:13)
[2025-02-14 22:17] LABS: BASOPHILS # (AUTO) 0.03 K/uL (0.00-0.20); BASOPHILS % (AUTO) 0.4 % (0.0-5.0); EOSINOPHILS % (AUTO) 2.6 % (0.0-8.0); HEMATOCRIT 37.7 % (36-48); IMMATURE GRANULOCYTE ABSOLUTE 0.04 K/uL (0-1); LYMPHOCYTES # (AUTO) 2.7 K/uL (1.0-4.8); LYMPHOCYTES % (AUTO) 34.3 % (21.0-51.0); MEAN CORPUSCULAR HGB CONC 34.2 g/dL (32.0-36.0); MEAN CORPUSCULAR VOLUME 87.7 fL (79-99); MONOCYTES # (AUTO) 0.5 K/uL (0.1-1.0); MONOCYTES % (AUTO) 6.2 % (3.0-13.0); NEUTROPHILS # (AUTO) 4.3 K/uL (1.8-7.7); PLATELET COUNT (AUTO) 294 K/uL (130-400); RED CELL DISTRIBUTION WIDTH 14.1 % (11.0-15.5); WHITE BLOOD COUNT (AUTO) 7.8 K/uL (4.8-10.8)
[2025-02-14 22:26] LABS: CREATININE 0.6 mg/dL (0.5-1.0); POTASSIUM 3.7 mmol/L (3.5-5.1)
[2025-02-14] MEDS ORDERED: ketOROlac 15MG/ML VIAL (15MG/ML) IV ONE (23:00)
--- NOTE | 2025-02-14 23:09 | ERN ---
ED Note History of Present Illness Stated Complaint: FEET HURT AND HEADACHE Chief Complaint: Multiple Complaints Time Seen by MD: 21:47 Time Seen by Midlevel: 21:47 Dictation: The patient is a 39-year-old female with a history of diabetes, cholecystectomy who presents to the emergency department with complaints of frontal headache for two days. Patient also reports chronic feet pain which was told she had neuropathy. Patient denies any head trauma, denies any fevers, denies any nausea or vomiting, denies any upper respiratory symptoms. Allergies: Coded Allergies: No Known Drug Allergies (Unverified Allergy, Unknown, 09/02/24) ibuprofen (Unverified Allergy, Unknown, 02/14/25) Home Meds Active Scripts Gabapentin (Gabapentin) 100 Mg Capsule, 1 CAP PO BID for 3 Days, #6 CAP 0 Refills Prov:GARRET ARRIAZA MD 12/24/24 Ketorolac Tromethamine (Ketorolac Tromethamine) 10 Mg Tablet, 1 TAB PO TID for pain for 5 Days, #15 TAB 0 Refills Prov:FRANKLIN REYES 12/07/24 Cephalexin Monohydrate (Keflex) 500 Mg Cap, 500 MG PO BID for 7 Days, #28 CAP Prov:GURWINDER RODRIGUEZ [employer]ERGY RISK MANAGEMENT ANALYST 09/02/24 Famotidine (Pepcid) 20 Mg Tablet, 1 TAB PO BID for 30 Days, #60 TAB 0 Refills Prov:GURWINDER RODRIGUEZ [employer]ER[employer] RISK MANAGEMENT ANALYST 09/02/24 Ondansetron (Ondansetron Odt) 4 Mg Tab.rapdis, 4 MG PO Q6HPRN PRN for nausea for 3 Days, #12 TAB 0 Refills Prov:GURWINDER RODRIGUEZ ENERGY RISK MANAGEMENT ANALYST 09/02/24 Past Medical History Past Medical History: Anxiety, Diabetes-Type II, Hypertension, Other Additional Past Medical Hx: CIRRHOSIS Surgical History: Hysterectomy, Tonsillectomy, Cholecystectomy : 2 Para: 1 Aborts: 1 RN Note Reviewed/Agreed w/PFSH: Yes Review of System Dictation Constitutional: Negative for fever,chills, and weight loss Eyes: Negative for injury, pain,redness, and discharge ENT: Negative for injury,pain or swelling Cardiovascular: Negative for chest pain, palpitations, and edema Respiratory: Negative for shortness of breath, cough, and wheezing, Abdomen/GI: Negative for abdominal pain, nausea, vomiting, diarrhea, and constipation Back: Negative for injury and pain : Negative for injury, bleeding and discharge MS/Extremity: Negative for injury and deformity Skin: Negative for rash, and discoloration Neuro: Negative for weakness, numbness, tingling, and seizure positive for headache Psych: Negative for suicide ideation, homicidal ideation, and hallucinations Initial Vital Sign VS Vital Signs Date Time Temp Pulse Resp B/P (MAP) Pulse Ox O2 Delivery O2 Flow Rate FiO2 02/14/25 21:36 97.3 72 18 134/89 98 Room Air 02/14/25 21:46 0 21 Physical Exam Dictation Vital Signs reviewed General Appearance: Alert, oriented x 3, no acute distress, well developed, nourished. Head and Face: non-traumatic. Eyes: PERRL, pink conjunctivas, eyelid no trauma, anterior chamber with arcus senilis. Ears: Pinnas intact and no signs of trauma or erythema ear canals clear and no discharge TM no erythema Nose: No discharge, no bleeding. Oropharynx: Mouth normal, tongue pink. pharynx clear,no erythema, tonsils no exudates, no abscesses noted, mucous membrane moist Neck: Supple, non-tender, no thyromegaly, no masses, no JVD, no bruits Breast:Deferred Chest:No tenderness, no crepitus, no paradoxical movement, no retractions Lungs:Clear, well-ventilated, symmetric, no rales, no wheezing, no rhonchi, no stridor, good breath sounds bilaterally Heart: Regular rate, regular rhythm, no murmur, no gallops Vascular: no peripheral edema, Abdomen: Soft, positive bowel sounds, nondistended, no guarding, nontender, no rebound, no masses no hepatomegaly, no splenomegaly, no Velazquez's sign, no hernias. Rectal: Deferred Genital: Deferred Neurological: Normal speech, motor function intact, sensory function intact, upper extremities equal in strength, lower extremities equal in strength. No facial droop Musculoskeletal: Neck nontender, full range of motion, back nontender, full range of motion, Extremities: nontender, full range of motion Skin: Color pink, dry, no turgor, no rash, no lacerations, no abrasions, no contusions. Lymphatic: Deferred Results (Laboratory/Radiology) Laboratory/Radiology Laboratory Tests Test 02/14/25 22:10 White Blood Count 7.8 K/uL (4.8-10.8) Red Blood Count 4.30 MIL/uL (4.00-5.50) Hemoglobin 12.9 g/dL (12.0-16.0) Hematocrit 37.7 % (36-48) Mean Corpuscular Volume 87.7 fL (79-99) Mean Corpuscular Hemoglobin 30.0 pg (27.0-33.0) Mean Corpuscular Hemoglobin Concent 34.2 g/dL (32.0-36.0) Red Cell Distribution Width 14.1 % (11.0-15.5) Platelet Count 294 K/uL (130-400) Mean Platelet Volume 11.0 fL (7.5-10.5) H Immature Granulocyte % (Auto) 0.5 % (0-1) Neutrophils (%) (Auto) 56.0 % (40.0-77.0) Lymphocytes (%) (Auto) 34.3 % (21.0-51.0) Monocytes (%) (Auto) 6.2 % (3.0-13.0) Eosinophils (%) (Auto) 2.6 % (0.0-8.0) Basophils (%) (Auto) 0.4 % (0.0-5.0) Neutrophils # (Auto) 4.3 K/uL (1.8-7.7) Lymphocytes # (Auto) 2.7 K/uL (1.0-4.8) Monocytes # (Auto) 0.5 K/uL (0.1-1.0) Eosinophils # (Auto) 0.20 K/uL (0.00-0.70) Basophils # (Auto) 0.03 K/uL (0.00-0.20) Absolute Immature Granulocyte (auto 0.04 K/uL (0-1) Nucleated Red Blood Cells 0.0 % (0.0-0.19) Sodium Level 138 mmol/L (136-145) Potassium Level 3.7 mmol/L (3.5-5.1) Chloride Level 102 mmol/L (101-111) Carbon Dioxide Level 32 mmol/L (21-32) Blood Urea Nitrogen 17 mg/dL (7-18) Creatinine 0.6 mg/dL (0.5-1.0) Glomerular Filtration Rate Calc 116 mL/min (>90) Random Glucose 309 mg/dL (70-105) H Total Calcium 8.4 mg/dL (8.5-10.1) L Human Chorionic Gonadotropin, Quant 0 mIU/mL (0-5) Labs Reviewed?: Yes ED Course ED Course Orders Procedure Category Date Status Time Cbc With Differential LAB 02/14/25 Complete 22:00 Hcg,Quantitative LAB 02/14/25 Complete 22:00 0.9%Nacl 1000ml (Ns PHA 02/14/25 Complete 1000ml) 22:00 Basic Metabolic Panel LAB 02/14/25 Complete 22:00 Acetaminophen 500mg PHA 02/14/25 Complete Tab (Tylenol 500mg T 22:00 Ketorolac PHA 02/14/25 Complete Tromethamine 15mg/Ml 23:00 Morphine 2mg Syg PHA 02/14/25 Complete (Morphine 2mg Syg) 23:30 Current Medications Medications (Trade) Dose Ordered Sig/Ella Route PRN Reason Start Time Stop Time Status Last Admin Dose Admin Acetaminophen (TYLenol 500MG TAB) 1,000 mg ONCE ONCE PO 02/14/25 22:00 02/14/25 22:04 DC 02/14/25 22:13 Ketorolac Tromethamine (toRADol) 15 mg ONCE ONCE IV 02/14/25 23:00 02/14/25 23:21 DC Morphine Sulfate (morPHINE 2MG SYG) 2 mg ONCE ONCE IVP 02/14/25 23:30 02/14/25 23:31 DC 02/14/25 23:26 Sodium Chloride 1,000 ml @ 0 mls/hr ONCE ONCE IV 02/14/25 22:00 02/14/25 22:04 DC 02/14/25 22:13 Vital Signs Date Time Temp Pulse Resp B/P (MAP) Pulse Ox O2 Delivery O2 Flow Rate FiO2 02/14/25 21:46 97.3 72 18 134/89 98 Room Air* 0 21 02/14/25 21:36 97.3 72 18 134/89 98 Room Air Medical Decision Making MDM The patient is a 39-year-old female with a history of diabetes, cholecystectomy who presents to the emergency department with complaints of frontal headache for two days. Patient also reports chronic feet pain which was told she had neuropathy. Patient denies any head trauma, denies any fevers, denies any nausea or vomiting, denies any upper respiratory symptoms. CBC showed no leukocytosis, no anemia, chemistry showed mild hyperglycemia with no DKA. Patient received a L of fluids Tylenol reports headache has gone away and feels better after treatment. Patient does report chronic feet pain but was told it was neuropathy. Patient with no fevers or wounds. On physical exam patient is neurologically intact. Stable vital signs. Patient will be discharged to follow up with PCP Differential diagnosis: dehydration, tension headache, electrolyte imbalance. Need for hospitalization: Patient does not meet criteria for hospitalization. There are no social concerns with this patient. DX & DISP Disposition: Discharge Departure Impression: Primary Impression: Headache Condition: Stable Additional Instructions: Your labs showed a elevated glucose otherwise the rest of the labs were unremarkable. Please continue to take your diabetes medication Please follow up with your primary doctor in 1-2 days. You can take Tylenol as needed for pain. FOLLOW-UP WITH PRIMARY CARE PROVIDER IN 1 TO 2 DAYS. TAKE MEDICATIONS DIRECTED HERE IN THE EMERGENCY ROOM. OKAY TO CONTINUE HOME MEDICATIONS UNLESS OTHERWISE DISCUSSED DURING YOUR VISIT IN THE EMERGENCY ROOM TODAY. RETURN TO YOUR NEAREST EMERGENCY ROOM IF SYMPTOMS WORSEN OR IF THERE IS NO IMPROVEMENT. CALL 911 IF YOU NEED IMMEDIATE ASSISTANCE. TAKE TYLENOL OR MOTRIN [id number] NEEDED AND IF NO CONTRAINDICATIONS ARE PRESENT. INCREASE ORAL HYDRATION. A WOUND CULTURE OR URINE CULTURE WAS ORDERED HERE IN THE EMERGENCY ROOM DEPARTMENT PLEASE FOLLOW-UP WITH PRIMARY CARE PROVIDER AND ADVISE THEM TO GET REPEAT PORTS FROM OUR FACILITY. IF YOU HAD ANY RON WRAP/SPLINTS THAT WERE APPLIED HERE, PLEASE DO NOT REMOVE THEM UNTIL YOU SEE YOUR PRIMARY CARE OR SPECIALTY. Referrals: NONE (PCP) Time of Disposition: 23:35 I have reviewed the case, and I agree with, Diagnosis and Plan HA[place] PATRICKP Feb 14, 2025 23:09
[2025-02-14] MEDS: morPHINE 2 MG SYG IVP ONE (23:26)
[2025-02-14 23:45] VITALS: BP 134/85; PULSE 55; RESP 18; O2SAT 100
== END 2025-02-14 23:47 | disposition home or self-care (01) ==
LOC: EDH 21:34
DX: R51.9 Headache, unspecified (principal); E11.9 Type 2 diabetes mellitus without complications; I10 Essential (primary) hypertension; R10.2 Pelvic and perineal pain; F41.9 Anxiety disorder, unspecified; Z79.899 Other long term (current) drug therapy; Z88.6 Allergy status to analgesic agent; Z90.49 Acquired absence of other specified parts of digestive tract; Z90.710 Acquired absence of both cervix and uterus
CPT/HCPCS: 99283; 96374; 80048; 84702; 85025; 36415; J2270; J7030; J1885

== ENCOUNTER 2025-06-11 16:37 | Emergency (ER) | payer SELFPAY ==
[~2025-06-11] VITALS: Ht 157.5 cm; Wt 74.8 kg
[2025-06-11 17:09] LABS: IMMATURE GRANULOCYTE ABSOLUTE 0.06 K/uL (0-1); NUCLEATED RED BLOOD CELLS 0.0 % (0.0-0.19); PLATELET COUNT (AUTO) 246 K/uL (130-400); RED BLOOD CELL COUNT(AUTO) 4.88 MIL/uL (4.00-5.50); RED CELL DISTRIBUTION WIDTH 13.1 % (11.0-15.5); WHITE BLOOD COUNT (AUTO) 10.0 K/uL (4.8-10.8)
[2025-06-11 17:14] LABS: CREATININE 0.5 mg/dL (0.5-1.0); GLOMERULAR FILTR. RATE CALC 121.0 mL/min (>90); GLUCOSE,RANDOM 310.0 mg/dL (70-105); SODIUM SERUM 139.0 mmol/L (136-145); UREA NITROGEN, BLOOD 12.0 mg/dL (7-18)
[2025-06-11 17:19] LABS: APPEARANCE,URINE CLEAR (CLEAR); GLUCOSE, URINE (UA) >=1000 mg/dL (NEGATIVE); LEUKOCYTE ESTERASE ,URINE NEGATIVE Leu/uL (NEGATIVE); NITRATE,URINE NEGATIVE (NEGATIVE); OCCULT BLOOD,URINE LARGE (NEGATIVE)
[2025-06-11 17:20] LABS: ADD UA MICROSCOPIC YES
[2025-06-11 17:21] LABS: SQUAMOUS EPITHELIAL CELL,UR FEW /HPF (0-2)
[2025-06-11] MEDS ORDERED: IOHEXOL-350 75 ML VIAL IV ONE (18:20)
--- NOTE | 2025-06-11 18:35 | NUR ---
PT RETURNED TO CT
[2025-06-11] MEDS: 0.9%NACL 1000ML 1,000 ML IV STA (18:53)
--- NOTE | 2025-06-11 19:17 | HMCIMG ---
EXAM: CT Abdomen and Pelvis with and without IV contrast CLINICAL HISTORY: Patient presents with right lower quadrant and flank pain. TECHNIQUE: Axial computed tomography images of the abdomen and pelvis were obtained with and without intravenous contrast. Multiplanar reformations were generated and reviewed. CONTRAST: Administered intravenously. COMPARISON: None provided. FINDINGS: LUNG BASES: Clear. No pleural effusions. LIVER: The liver is enlarged, measuring 20 cm in craniocaudal span. GALLBLADDER AND BILE DUCTS: The gallbladder is surgically absent. No biliary ductal dilatation. PANCREAS: Unremarkable. SPLEEN: Unremarkable. ADRENAL GLANDS: Unremarkable. KIDNEYS, URETERS, AND BLADDER: Normal appearance of the kidneys without hydronephrosis, hydroureter, or urinary calculi. The urinary bladder is unremarkable. STOMACH AND BOWEL: Mild constipation. No bowel obstruction, enteritis, or colitis. APPENDIX: No CT features of acute appendicitis. PERITONEUM: No free fluid or free air. LYMPH NODES: No lymphadenopathy. REPRODUCTIVE: An enhancing lesion in the right ovary measuring 4.1 x 3.3 x 3.3 cm. Recommend MRI pelvis and transvaginal sonography for further characterization. VASCULATURE: No abdominal aortic aneurysm. BONES: No aggressive or acute osseous pathology. IMPRESSION: Enhancing lesion in the right ovary measuring 4.1 x 3.3 x 3.3 cm; recommend MRI pelvis and transvaginal sonography for further evaluation. Hepatomegaly with the liver measuring 20 cm in craniocaudal span. Mild constipation. Status post cholecystectomy. /[place]
--- NOTE | 2025-06-11 20:39 | ERN ---
ED Note History of Present Illness Stated Complaint: FLANK PAIN Chief Complaint: Flank Pain Time Seen by MD: 16:40 Time Seen by Midlevel: 16:44 Dictation: 40-year-old female with a history of hypertension and diabetes coming in with complaints of pain to the right lower quadrant radiating to the right flank area, patient thinks she has a kidney stone. Patient states she is currently on her menstrual cycle. denies having any recent fever, nausea vomiting or diarrhea. Denies any chest pain or chest discomfort. Allergies: Coded Allergies: No Known Drug Allergies (Unverified Allergy, Unknown, 09/02/24) ibuprofen (Unverified Allergy, Unknown, 02/14/25) Home Meds Active Scripts Gabapentin (Gabapentin) 100 Mg Capsule, 1 CAP PO BID for 3 Days, #6 CAP 0 Refills Prov:GARRET ARRIAZA MD 12/24/24 Ketorolac Tromethamine (Ketorolac Tromethamine) 10 Mg Tablet, 1 TAB PO TID for pain for 5 Days, #15 TAB 0 Refills Prov:FRANKLIN REYES 12/07/24 Cephalexin Monohydrate (Keflex) 500 Mg Cap, 500 MG PO BID for 7 Days, #28 CAP Prov:RODRIGUEZ,GURWINDER DATA WAREHOUSING SPECIALIST 09/02/24 Famotidine (Pepcid) 20 Mg Tablet, 1 TAB PO BID for 30 Days, #60 TAB 0 Refills Prov:RODRIGUEZ,GURWINDER DATA WAREHOUSING SPECIALIST 09/02/24 Ondansetron (Ondansetron Odt) 4 Mg Tab.rapdis, 4 MG PO Q6HPRN PRN for nausea for 3 Days, #12 TAB 0 Refills Prov:RODRIGUEZGURWINDER DATA WAREHOUSING SPECIALIST 09/02/24 Past Medical History Past Medical History: Diabetes-Type II, High Cholesterol, Hypertension Additional Past Medical Hx: CIRRHOSIS Surgical History: Cholecystectomy : 2 Para: 1 Aborts: 1 Review of System Dictation Constitutional: Negative for fever,chills, and weight loss Eyes: Negative for injury, pain,redness, and discharge ENT: Negative for injury,pain or swelling Cardiovascular: Negative for chest pain, palpitations, and edema Respiratory: Negative for shortness of breath, cough, and wheezing, Abdomen/GI: Complaining of right lower quadrant pain, no nausea, no vomiting, no diarrhea, and no constipation Back: Negative for injury and pain : Negative for injury, bleeding and discharge MS/Extremity: Negative for injury and deformity Skin: Negative for rash, and discoloration Neuro: Negative for headache, weakness, numbness, tingling, and seizure Psych: Negative for suicide ideation, homicidal ideation, and hallucinations Review of Systems: was completed Initial Vital Sign VS Vital Signs Date Time Temp Pulse Resp B/P (MAP) Pulse Ox O2 Delivery O2 Flow Rate FiO2 06/11/25 16:40 98.4 66 14 140/80 98 Room Air 0 06/11/25 18:51 21 Physical Exam Dictation General: awake, alert, NAD Head/Face: Normocephalic, atraumatic Eyes: PERRL, EOMI, vision at baseline ENT: oral cavity clear, TMs clear, no signs of infection Neck: Trachea midline, supple, no nuchal rigidity Cardiovascular: RRR, normal S1/S2, No MRGs, no JVD Respiratory: CTAB, no respiratory distress, No rales or wheezes Abdomen: Soft, non-tender, non-distended, normal bowel sounds, no guarding or rebound. Skin: Warm, dry, normal turgor, no rash MS/Extremity: Pulses equal, no cyanosis, neurovascular intact, FROM Neuro: COAx4, GCS 15, strength 5/5, CN 2-12 intact, normal cerebellar exam, normal gait, Psych: Normal behavior, mood, and affect normal Results (Laboratory/Radiology) Laboratory/Radiology Laboratory Tests Test 06/11/25 17:00 06/11/25 17:08 White Blood Count 10.0 K/uL (4.8-10.8) Red Blood Count 4.88 MIL/uL (4.00-5.50) Hemoglobin 14.6 g/dL (12.0-16.0) Hematocrit 44.2 % (36-48) Mean Corpuscular Volume 90.6 fL (79-99) Mean Corpuscular Hemoglobin 29.9 pg (27.0-33.0) Mean Corpuscular Hemoglobin Concent 33.0 g/dL (32.0-36.0) Red Cell Distribution Width 13.1 % (11.0-15.5) Platelet Count 246 K/uL (130-400) Mean Platelet Volume 10.9 fL (7.5-10.5) H Immature Granulocyte % (Auto) 0.6 % (0-1) Neutrophils (%) (Auto) 75.0 % (40.0-77.0) Lymphocytes (%) (Auto) 16.4 % (21.0-51.0) L Monocytes (%) (Auto) 5.9 % (3.0-13.0) Eosinophils (%) (Auto) 1.8 % (0.0-8.0) Basophils (%) (Auto) 0.3 % (0.0-5.0) Neutrophils # (Auto) 7.5 K/uL (1.8-7.7) Lymphocytes # (Auto) 1.6 K/uL (1.0-4.8) Monocytes # (Auto) 0.6 K/uL (0.1-1.0) Eosinophils # (Auto) 0.18 K/uL (0.00-0.70) Basophils # (Auto) 0.03 K/uL (0.00-0.20) Absolute Immature Granulocyte (auto 0.06 K/uL (0-1) Nucleated Red Blood Cells 0.0 % (0.0-0.19) Sodium Level 139 mmol/L (136-145) Potassium Level 3.9 mmol/L (3.5-5.1) Chloride Level 105 mmol/L (101-111) Carbon Dioxide Level 27 mmol/L (21-32) Blood Urea Nitrogen 12 mg/dL (7-18) Creatinine 0.5 mg/dL (0.5-1.0) Glomerular Filtration Rate Calc 121 mL/min (>90) Random Glucose 310 mg/dL (70-105) H Total Calcium 8.2 mg/dL (8.5-10.1) L Urine Color LIGHT-BROWN (YELLOW) Urine Appearance CLEAR (CLEAR) Urine pH 6.0 (5.0-8.0) Urine Specific [place] 1.045 (1.001-1.031) Urine Protein 30 mg/dL (NEGATIVE) H Urine Glucose (UA) >=1000 mg/dL (NEGATIVE) H Urine Ketones NEGATIVE mg/dL (NEGATIVE) Urine Occult Blood LARGE (NEGATIVE) H Urine Nitrate NEGATIVE (NEGATIVE) Urine Bilirubin NEGATIVE mg/dL (NEGATIVE) Urine Urobilinogen 0.2 mg/dL (0.2-1.0) Urine Leukocyte Esterase NEGATIVE Lana/uL Urine RBC >100 /HPF (0-1) H Urine WBC 2-5 /HPF (0-1) H Urine Squamous Epithelial Cells FEW /HPF (0-2) Urine Bacteria None /HPF (None Seen) Labs Reviewed?: Yes CT Scan Comment: [facility] [address] [place] [address] IMAGING REPORT Signed PATIENT: DAVIDE JACOB MR#: [id number] : 1985 SEX: F AGE: 40 LOCATION: [facility] ORDER 38 STATUS: REG ER REPORT#: [id number] SERVICE 36 REASON: rlq , flank pain ORDERING PHYSICIAN: GURWINDER RODRIGUEZ PROCEDURE: ABD PELWWO - CT ABDOMEN/PELVIS W/WO CONTRAS EXAM: CT Abdomen and Pelvis with and without IV contrast CLINICAL HISTORY: Patient presents with right lower quadrant and flank pain. TECHNIQUE: Axial computed tomography images of the abdomen and pelvis were obtained with and without intravenous contrast. Multiplanar reformations were generated and reviewed. CONTRAST: Administered intravenously. COMPARISON: None provided. FINDINGS: LUNG BASES: Clear. No pleural effusions. LIVER: The liver is enlarged, measuring 20 cm in craniocaudal span. GALLBLADDER AND BILE DUCTS: The gallbladder is surgically absent. No biliary ductal dilatation. PANCREAS: Unremarkable. SPLEEN: Unremarkable. ADRENAL GLANDS: Unremarkable. KIDNEYS, URETERS, AND BLADDER: Normal appearance of the kidneys without hydronephrosis, hydroureter, or urinary calculi. The urinary bladder is unremarkable. STOMACH AND BOWEL: Mild constipation. No bowel obstruction, enteritis, or colitis. APPENDIX: No CT features of acute appendicitis. PERITONEUM: No free fluid or free air. LYMPH NODES: No lymphadenopathy. REPRODUCTIVE: An enhancing lesion in the right ovary measuring 4.1 x 3.3 x 3.3 cm. Recommend MRI pelvis and transvaginal sonography for further characterization. VASCULATURE: No abdominal aortic aneurysm. BONES: No aggressive or acute osseous pathology. IMPRESSION: Enhancing lesion in the right ovary measuring 4.1 x 3.3 x 3.3 cm; recommend MRI pelvis and transvaginal sonography for further evaluation. Hepatomegaly with the liver measuring 20 cm in craniocaudal span. Mild constipation. Status post cholecystectomy. /[place] DICTATED BY: HUSSEIN LE MD DATE: 06/11/252016 ELECTRONICALLY SIGNED BY: HUSSEIN LE MD DATE: 06/11/252016 ED Course ED Course Orders Procedure Category Date Status Time Cbc With Differential LAB 06/11/25 Complete 16:43 Basic Metabolic Panel LAB 06/11/25 Complete 16:43 Urinalysis Profile LAB 06/11/25 Complete 16:43 0.9%Nacl 1000ml (Ns PHA 06/11/25 Complete 1000ml) 16:43 *Nursing CPOE 06/11/25 Transmitted Communication: 17:37 Ondansetron 4mg Inj PHA 06/11/25 Complete (Zofran 4mg Inj) 18:00 Morphine 4mg Syg PHA 06/11/25 Complete (Morphine 4mg Syg) 18:00 Iohexol (Omnipaque) PHA 06/11/25 Complete 18:20 Ct Abdomen/Pelvis CT 06/11/25 Resulted W/Wo Contras 17:37 Us Transvaginal Non-Ob US 06/11/25 Taken 19:34 Current Medications Medications (Trade) Dose Ordered Sig/Ella Route PRN Reason Start Time Stop Time Status Last Admin Dose Admin Iohexol (Omnipaque) 75 ml STK-MED ONCE IV 06/11/25 18:20 06/11/25 18:20 DC Morphine Sulfate (morPHINE 4MG SYG) 2 mg ONCE ONCE IVP 06/11/25 18:00 06/11/25 18:01 DC 06/11/25 18:53 Ondansetron HCl (zoFRAN 4MG INJ) 4 mg ONCE ONCE IVP 06/11/25 18:00 06/11/25 18:01 DC 06/11/25 18:52 Sodium Chloride 1,000 ml @ 1,000 mls/hr Q1H STAT IV 06/11/25 16:43 06/11/25 17:42 DC 06/11/25 18:53 Vital Signs Date Time Temp Pulse Resp B/P (MAP) Pulse Ox O2 Delivery O2 Flow Rate FiO2 06/11/25 18:51 71 16 135/78 100 Room Air* 0 21 06/11/25 16:40 98.4 66 14 140/80 98 Room Air 0 Medical Decision Making MDM MDM: 40-year-old female with a history of hypertension and diabetes coming in with complaints of pain to the right lower quadrant radiating to the right flank area, patient thinks she has a kidney stone. Patient states she is currently on her menstrual cycle. denies having any recent fever, nausea vomiting or diarrhea. Denies any chest pain or chest discomfort. CBC shows no leukocytosis, no anemia, no thrombocytopenia. Chemistry shows no electrolyte abnormality. Glucose of 310. Patient is diabetic. Urine shows no evidence of urinary tract infection, but does have some hematuria as this was a clean-catch and how to straight cath. CT scan ordered to rule out kidney stones and appendicitis. CT scan shows enhancing lesion in the right ovary measuring 4 x 3 x 3 cm recommend did an MRI or transvaginal sonography for further evaluation. Hepatomegaly, mild constipation and no kidney stone. Ordered a ultrasound transvaginal was rule out a ovarian torsion. Ultrasound is showing flow to both right and left ovary. Started avulsion seen in his heart and a hit on coated in the subdurals fibroid and a possible submucosal fibroid as well. This was discussed with he has been educated that she needs to follow up outpatient with an OBGYN. Educated on signs and symptoms of when to return back to the emergency room. Patient verbalized understanding, answered all questions. Differential diagnosis: Kidney stone, pyelonephritis, urinary tract infection, appendicitis Rationale: Tests considered and ordered secondary to shared decision making include: Previous outside records reviewed: Old ER visits. Risk of complication and/or morbidity or mortality of patient management: None Medications-Per medication reconciliation Need for hospitalization: Patient does not meet criteria for hospitalization. Need for emergency major/minor surgery: No There are no social concerns with this patient. Prescription drug management Prescriptions will include symptomatic care Patient's prior external medical records from other ER visits were reviewed by me as indicated. Prior testing and results from previous visits were reviewed. Prior tests were taken into account with medical decision making and resource utilization, independent historian/historians were used to obtain complete medical history. I independently interpreted the test that were performed, results were reviewed by me and considered findings on radiology if ordered. Medical management and examination interpretation discussions were had by me with other qualified healthcare professionals as indicated for the patient's care. DX & DISP Disposition: Discharge Departure Impression: Primary Impression: Fibroids Additional Impressions: Fibroids, submucosal, Fibroids, subserous Condition: Stable Additional Instructions: With your primary care provider and with the OBGYN. You can take Tylenol or Motrin [id number] for pain control. To the hospital for worsening pain. Referrals: NATHALIA RICARDO (PCP) Time of Disposition: 20:38 I have reviewed the case, and I agree with GURWINDER RODRIGUEZ DATA WAREHOUSING SPECIALIST Jun 11, 2025 20:39
--- NOTE | 2025-06-11 20:50 | HMCIMG ---
EXAMINATION: COMPLETE TRANSVAGINAL ULTRASOUND OF PELVIS. CLINICAL HISTORY: Abnormal CT. Right ovarian mass, to rule out torsion. COMPARISON: CT of the abdomen and pelvis with contrast from the same day. TECHNIQUE: Multiple real-time grayscale images of the pelvis were obtained with transvaginal transducer. In addition, color Doppler is medically necessary to perform to assess for vascularity and blood flow. FINDINGS: The uterus is anteverted, normal in caliber and measures 9.2 x 4.5 x 5.7 cm in the craniocaudal, AP, and transverse dimensions respectively. There is heterogenous echotexture. There are intramural fibroids that measure 2.0 x 1.9 x 2.4 cm at the anterior wall and 3.4 x 2.9 x 3.5 cm in the right lateral wall. The endometrium measures approximately 0.40 cm. Cervix appears normal. The right ovary is normal in caliber and measures 2.1 x 1.7 x 2.3 cm. The left ovary is normal in caliber and measures 2.0 x 1.3 x 2.0 cm. The ovarian vascularity is present. There is no free fluid in the cul-de-sac. IMPRESSION: Uterine fibroids. heterogenous echotexture of the myometrium, of concern for adenomyosis. No torsion of the ovaries. /[place]
[2025-06-11 21:35] VITALS: BP 138/77; PULSE 78; RESP 17; TEMP 98.2; O2SAT 100
== END 2025-06-11 21:33 | disposition home or self-care (01) ==
LOC: EDH 16:37
DX: D25.0 Submucous leiomyoma of uterus (principal); D25.2 Subserosal leiomyoma of uterus; E11.9 Type 2 diabetes mellitus without complications; I10 Essential (primary) hypertension; E78.00 Pure hypercholesterolemia, unspecified; Z79.899 Other long term (current) drug therapy; Z88.6 Allergy status to analgesic agent; Z90.49 Acquired absence of other specified parts of digestive tract
CPT/HCPCS: 99285; 74178; 96374; 76830; 96361; 96375; 80048; 85025; 81001; 36415; 96376; J7030; J2405; J2270 ×2; Q9967

== ENCOUNTER 2025-06-13 18:20 | Emergency (ER) | payer SELFPAY ==
[~2025-06-13] VITALS: Ht 157.5 cm; Wt 74.8 kg
[2025-06-13 19:45] VITALS: BP 163/73; PULSE 88; RESP 20; TEMP 98.7; O2SAT 98
--- NOTE | 2025-06-13 19:45 | NUR ---
PATIENT CARE ASSUMED AT THIS TIME.
--- NOTE | 2025-06-13 19:55 | ERN ---
General Chief Complaint: Pelvic Pain Stated Complaint: PELVIC PAIN Time Seen by MD: 18:21 Time Seen by Midlevel: 18:21 Source: patient History of Present Illness Initial Comments 40-year-old female presents to the ER for evaluation of pelvic pain. The patient has an extensive history of uterine fibroids. She was seen in our emergency department two days ago for the same complaint. At that time she had a CT scan an ultrasound which revealed fibroids. She was ultimately discharged home and was advised to follow up outpatient. Today she returns with increased pain. Denies any other symptoms. Allergies: Coded Allergies: No Known Drug Allergies (Unverified Allergy, Unknown, 09/02/24) ibuprofen (Unverified Allergy, Unknown, 02/14/25) Home Meds Active Scripts Gabapentin (Gabapentin) 100 Mg Capsule, 1 CAP PO BID for 3 Days, #6 CAP 0 Refills Prov:GARRET ARRIAZA MD 12/24/24 Ketorolac Tromethamine (Ketorolac Tromethamine) 10 Mg Tablet, 1 TAB PO TID for pain for 5 Days, #15 TAB 0 Refills Prov:FRANKLIN REYES 12/07/24 Cephalexin Monohydrate (Keflex) 500 Mg Cap, 500 MG PO BID for 7 Days, #28 CAP Prov:GURWINDER RODRIGUEZ [employer]IAN [employer]ICE 09/02/24 Famotidine (Pepcid) 20 Mg Tablet, 1 TAB PO BID for 30 Days, #60 TAB 0 Refills Prov:GURWINDER RODRIGUEZ [employer] OFFICE 09/02/24 Ondansetron (Ondansetron Odt) 4 Mg Tab.rapdis, 4 MG PO Q6HPRN PRN for nausea for 3 Days, #12 TAB 0 Refills Prov:GURWINDER RODRIGUEZ [employer] OFFICE 09/02/24 Past Medical History Past Medical History: Diabetes-Type II, High Cholesterol, Hypertension Medical History Other: CIRRHOSIS, UTERINE FIBROID Past Surgical History: Cholecystectomy Female( History) : 2 Para: 1 Aborts: 1 ROS Dictation CONSTITUTIONAL: Negative except for HPI HEAD/FACE: Negative except for HPI EENT: Negative except for HPI RESPIRATORY: Negative except for HPI GASTROINTESTINAL/ABDOMINAL: Negative except for HPI GENITOURINARY: Negative except for HPI MUSCULOSKELETAL: Negative except for HPI INTEGUMENTARY: Negative except for HPI NEUROLOGICAL/PSYCH: Negative except for HPI HEMATOLOGIC/LYMPHATIC: Negative except for HPI All Systems Negative, Except as noted above. 13 point review of systems assessed and all negative except for above. Physical Exam Physical Exam Dictation Vital Signs reviewed General Appearance: Alert, oriented x 3, no acute distress, well developed, nourished. Head and Face: non-traumatic. Eyes: PERRL, pink conjunctivas, eyelid no trauma, anterior chamber with arcus senilis. Ears: Pinnas intact and no signs of trauma or erythema ear canals clear and no discharge TM no erythema Nose: No discharge, no bleeding. Oropharynx: Mouth normal, tongue pink, pharynx clear,no erythema, tonsils no exudates, no abscesses noted, mucous membrane moist Neck: Supple, non-tender, no thyromegaly, no masses, no JVD, no bruits Breast:Deferred Chest:No tenderness, no crepitus, no paradoxical movement, no retractions Lungs:Clear, well-ventilated, symmetric, no rales, no wheezing, no rhonchi, no stridor, good breath sounds bilaterally Heart: Regular rate, regular rhythm, no murmur, no gallops Vascular: no peripheral edema, Abdomen: Soft, positive bowel sounds, nondistended, no guarding, nontender, no rebound, no masses no hepatomegaly, no splenomegaly, no Velazquez's sign, no hernias. Rectal: Deferred Genital: Deferred Neurological: Normal speech, motor function intact, sensory function intact Musculoskeletal: Neck nontender, full range of motion, back nontender, full range of motion, Extremities: nontender, full range of motion Skin: Color pink, dry, no turgor, no rash, no lacerations, no abrasions, no contusions. Lymphatic: Deferred MDM MDM: 40-year-old female presents to the ER for evaluation of pelvic pain. The patient has an extensive history of uterine fibroids. She was seen in our emergency department two days ago for the same complaint. At that time she had a CT scan an ultrasound which revealed fibroids. She was ultimately discharged home and was advised to follow up outpatient. Today she returns with increased pain. Denies any other symptoms. On physical examination patient is in no acute distress. Chart review reveals patient was here two days ago. CT and ultrasound were performed which reveal uterine fibroids. Blood work at that time was unremarkable. Patient here for pain control. Patient given 4 mg of morphine but she will ultimately have to follow up outpatient with OBGYN for further evaluation. Patient agrees with this plan and all questions were answered. Differential diagnosis: Intractable pain, uterine fibroids, There are no social concerns with this patient. Prescription drug management Prescriptions will include: None Medical management and examination interpretation discussions were had by me with other qualified healthcare professionals as indicated for the patient's care. ED Course Orders Procedure Category Date Status Time Morphine 4mg Syg PHA 06/13/25 In Process (Morphine 4mg Syg) 19:00 Current Medications Medications (Trade) Dose Ordered Sig/Ella Route PRN Reason Start Time Stop Time Status Last Admin Dose Admin Morphine Sulfate (morPHINE 4MG SYG) 4 mg ONCE IM 06/13/25 19:00 06/13/25 23:59 Vital Signs Date Time Temp Pulse Resp B/P (MAP) Pulse Ox O2 Delivery O2 Flow Rate FiO2 06/13/25 18:21 98.8 88 20 163/73 98 Room Air DX & DISP Disposition: Discharge Departure Impression: Primary Impression: Fibroids Condition: Stable Additional Instructions: You were seen in our emergency department two days ago for the same symptoms. Your ultrasound at that time showed uterine fibroids. For this you will need to follow up with an OBGYN outpatient for further evaluation. You were given 4 mg of morphine in the emergency department. You need to follow up with your primary care doctor if you need stronger medication prescribed for pain. You may take Tylenol and Motrin as needed Referrals: NATHALIA RICARDO (PCP) Time of Disposition: 19:48 I have reviewed the case, and I agree with, Diagnosis and Plan I performed the substantive portion of the visit. I have reviewed and personally made and approve the management plan that is documented in the note by myself or the RIOG. I acknowledge for responsibility for the patient's management plan. FRANKLIN REYES PAC Jun 13, 2025 19:54
== END 2025-06-13 20:27 | disposition home or self-care (01) ==
LOC: EDH 18:20
DX: D25.9 Leiomyoma of uterus, unspecified (principal); E11.9 Type 2 diabetes mellitus without complications; E78.00 Pure hypercholesterolemia, unspecified; I10 Essential (primary) hypertension; Z79.899 Other long term (current) drug therapy; Z86.018 Personal history of other benign neoplasm; Z88.6 Allergy status to analgesic agent; Z90.49 Acquired absence of other specified parts of digestive tract
CPT/HCPCS: 99283; 96372; J2270